=== PATIENT | male | born 1965 | race Two or more races ===

== ENCOUNTER 2020-02-24 08:23 | Day surgery (SDC) | payer OTHER ==
[2020-02-24] VITALS (8 sets, daily range): BP systolic 129–140; BP diastolic 84–103
[~2020-02-24] VITALS: Ht 180.3 cm; Wt 109.3 kg
--- NOTE | 2020-02-24 07:24 | Anethesia Preoperative Eval ---
Anesthesia Pre-op PMH/ROS General Date of Evaluation: Feb 24, 2020 Time of Evaluation: 07:23 Anesthesiologist: hannah ASA Score: ASA 3 Mallampati Score Class I : Soft palate, uvula, fauces, pillars visible Class II: Soft palate, uvula, fauces visible Class III: Soft palate, base of uvula visible Class IV: Only hard plate visible Mallampati Classification: Class II Surgeon: sly Diagnosis: ibs Surgical Procedure: egd Anesthesia History: none Social History: smoking - nonsmoker Family History: no anesthesia problems Allergies: Coded Allergies: PENICILLINS (Verified Allergy, Unknown, 02/24/20) Medications: see eMAR Patient NPO?: Yes Past Medical History Cardiovascular: Reports: HTN HEENT: Reports: cataract (L), cataract (R), other - retinal detachment Other: obesity PSxH Narrative: right ankle surgery Anesthesia Pre-op Phys. Exam Physician Exam Last Vital Signs Date Time Temp Pulse Resp B/P (MAP) Pulse Ox O2 Delivery O2 Flow Rate FiO2 02/24/20 08:53 98.2 79 18 140/84 97 Room Air Constitutional: NAD Neurologic: CN 2-12 intact Cardiovascular: RRR Respiratory: CTA Gastrointestinal: S/NT/ND Airway Exam Mallampati Score: Class II MO: limited Neck: flexible TMD: 2fb ROM: limited Teeth: intact Anesthesia Pre-op A/P Labs Microbiology Date/Time Source Procedure Growth Status 02/23/20 09:07 Nasopharynx SARS-CoV-2 RdRp Gene Assay - Final Complete Risk Assessment & Plan Assessment: asa3 Plan: mac Status Change Before Surgery: No Pre-Antibiotics Drug: Genia Plasencia MD Feb 24, 2020 07:24
[~2020-02-24 08:23] MED LIST: Atropine Inj 1mg/10ml Syr IVP PRN; DiphenhydrAMINE 50mg/ml Inj IVP PRN; LR 1000ml 1,000 ML IVLG SCH; Labetalol 5mg/ml 20ml vial IV PRN; Midazolam 2mg/2ml Inj IVP PRN; fentaNYL 100 mcg/2 mL IV PRN
[2020-02-24] MEDS ORDERED: LISINOPRIL10 MG ORAL (08:52)
--- NOTE | 2020-02-24 09:08 | Short Stay Surgery H&P ---
History of Present Illness History of Present Illness Chief Complaint Abdominal pains/GERDs/dysphagia HPI Chet Solorzano is a 54 year old male who was admitted on for Gerds/dysphagia Patient History Allergies: Coded Allergies: PENICILLINS (Verified Allergy, Unknown, 02/24/20) PAST MEDICAL HISTORY: (1) Hypertension (2) Status post eye surgery (3) History of ankle surgery Medication History Scheduled Lisinopril* (Lisinopril*), Unknown Dose ORAL DAILY, (Reported) Review of Systems Cardiovascular: Reports: hypertension Respiratory: Reports: no symptoms Skeletal: Reports: trauma Gastrointestinal: Reports: gastro esophageal reflux disease Genitourinary: Reports: no symptoms Neurologic: Reports: no symptoms Endocrine: Reports: no symptoms Hematologic: Reports: no symptoms Physical Exam Vital Signs Last Vital Signs Date Time Temp Pulse Resp B/P (MAP) Pulse Ox O2 Delivery O2 Flow Rate FiO2 02/24/20 08:53 98.2 79 18 140/84 97 Room Air Skin: normal HENT: normal Heart: normal Lungs: normal Abdomen: abnormal Extremities: normal Genitourinary: normal Plan Plan of Care Upper GI. endoscopy with biopsy Preop Interventions None. Summary of Findings See the reports. Attestation Are the patient's medical conditions optimized for surgery? Attestation Response: yes Rosanna Domínguez MD Feb 24, 2020 09:08
--- NOTE | 2020-02-24 09:09 | Pre-Procedure Note/Attestation ---
Pre-Procedure Note/Attestation Complete Prior to Procedure Planned Procedure: left Procedure Narrative: Examination of the upper GI. tract via endoscopy. Indications for Procedure Pre-Operative Diagnosis: R/O Peptic ulcer, gastritis,esophagitis. Attestation I attest that I discussed the nature of the procedure; its benefits; risks and complications; and alternatives (and the risks and benefits of such alternatives), prior to the procedure, with the patient (or the patient's legal veterans employment representative). I attest that, if there was a reasonable possibility of needing a blood transfusion, the patient (or the patient's legal veterans employment representative) was given the [facility] standardized written summary, pursuant to the [place] Blood Safety Act ([place] Health and Safety Code # 1645, as amended). I attest that I re-evaluated the patient just prior to the surgery and that th ere has been no change in the patient's H&P, except as documented below: Rosanna Domínguez MD Feb 24, 2020 09:09
--- NOTE | 2020-02-24 09:10 | Discharge Instructions ---
Discharge Instructions Discharge Instructions Follow up with: Non need for follow up with the doctor. For Congestive Heart Failure Reminder Report to your physician any weight gain of 5 pounds or more in one week. Rosanna Domínguez MD Feb 24, 2020 09:10
[2020-02-24] MEDS ORDERED: LR 1000ml ONE (09:30)
[2020-02-24] MEDS ORDERED: Lidocaine 1% MPF 10mg/ml 5ml ONE (09:30)
--- NOTE | 2020-02-24 09:33 | Endoscopy Procedure Note ---
Endoscopy Procedure Note General Indication for Procedure: Dysphagia Procedures Performed: EGD - Mild gastritis, biopsy obtained from gastric body. minimal exudative type plaques over lower esophagus, biopsied, otherwise normal UGI endosocopy. Specimen: yes Pt Tolerated Procedure Well: Yes Estimated Blood Loss: none Anesthesia Anesthesiologist: Dr. young. Anesthesia: moderate sedation Medications Medication Given: see anesthesia record Inserted Devices Implant(s) used?: No Quality Quality of Bowel Preparation: Excellent Was there any complications?: No GI Core Measures 50 yrs or older w/o bx or poly: Not Applicable 10yrs. F/U recommended: Not Applicable If not recommended, why?: Med reason:<3 yrs.: System Reason:<3 yrs.: Rosanna Domínguez MD Feb 24, 2020 09:33
--- NOTE | 2020-02-24 09:56 | Immediate Post-Op Evaluation ---
Immediate Post-Op Evalulation Immediate Post-Op Evalulation Procedure: egd w/bx Date of Evaluation: Feb 24, 2020 Time of Evaluation: 09:54 IV Fluids: 250ml lr Blood Products: none Estimated Blood Loss: negligible Blood Pressure Systolic: 138 Blood Pressure Diastolic: 88 Pulse Rate: 67 Respiratory Rate: 18 O2 Sat by Pulse Oximetry: 99 Temperature (Fahrenheit): 97.7 Pain Score (1-10): 0 Nausea: No Vomiting: No Complications none Patient Status: awake, reacts, patent Hydration Status: adequate Drug: Genia Plasencia MD Feb 24, 2020 09:56
--- NOTE | 2020-02-24 09:58 | 48 Hour Post Anesthesia Eval ---
Post Anesthesia Evaluation Procedure: egd w/bx Date of Evaluation: Feb 24, 2020 Time of Evaluation: 09:57 Blood Pressure Systolic: 137 0: 85 Pulse Rate: 62 Respiratory Rate: 18 Temperature (Fahrenheit): 97.7 O2 Sat by Pulse Oximetry: 99 Airway: patent Nausea: No Vomiting: No Pain Intensity: 0 Hydration Status: adequate Cardiopulmonary Status: stable Mental Status/LOC: patient returned to baseline Post-Anesthesia Complications: none Follow-up care needed: N/A Genia Delgadillo MD Feb 24, 2020 09:58
--- NOTE | 2020-02-24 10:30 | Procedure Note ---
DATE OF PROCEDURE: 02/24/2020 SURGEON: Rosanna Domínguez MD. PROCEDURE: Esophagogastroduodenoscopy with biopsy. PREOPERATIVE DIAGNOSIS: History of toxic chemical exposure and throat irritation, rule out gastroesophageal acid reflux, rule out esophagitis secondary to toxic material. POSTOPERATIVE DIAGNOSES: 1. Minimal superficial exudative substances over the lower esophagus biopsied but no major evidence of esophagitis or strictures noted. 2. Mild generalized gastritis. Biopsy was taken per random from gastric body, otherwise normal upper GI endoscopy. MEDICATION USED: Per Dr. Styles, anesthesiologist. INSTRUMENT: GIF Olympus upper GI video endoscope. DESCRIPTION OF PROCEDURE: The patient after arriving endoscopy unit, was told about risks and benefits of the procedure which he accepted and signed informed consent. He was then put on the left lateral decubitus position. After adequate IV sedation, the scope was gently passed through the cricopharyngeal area. The examination of did not reveal any evidence of inflammatory process, tumors, or polyps etc. The scope was then guided into the esophagus and gradually the upper and mid lower esophagus was examined which looked completely normal. However, upon reaching towards the low third of the esophagus, there was evidence of very minimal superficial exudative plaques that they could not be removed by irrigation of the water. There was no stricture or ulcers etc. However, at this time, one biopsy from one of these areas of were obtained and subsequently scope was advanced towards the gastroesophageal junction which looked completely without any evidence of Alex's mucosa or hiatal hernia. At this time, the scope was advanced into the stomach. Gastric cavity was distended with insufflation of air revealing minimal erythema over the gastric mucosa consistent with mild gastritis but there was no polyps, tumors, ulcers, bleeding site, hemangiomas, etc. A retroflexion maneuver was also applied and the area of the gastroesophageal junction was examined, which did not reveal any major pathology. At this point, one random biopsy from gastric body obtained and subsequently scope was passed through the antrum. First and second portion of duodenum were found to be completely normal. Finally, scope was pulled out and the procedure was terminated. The patient tolerated the procedure well and left the endoscopy room in a good condition. Said Mary Kate Domínguez DR: Benja JOB#: [id number] CC:
--- NOTE | 2020-02-24 10:45 | Pre-op HX & Phy Repo 2 SIG ---
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 This irritated his throat. As I mentioned, it was a toxic material and he started to cough. This happened frequently and still continues to have somewhat symptoms, but it less. He was subsequently seen by the ENT physician, Dr. Juventino Estrada who examined him with large scope and found that there probably not much finding in his throat and larynx and however he mentioned that the patient should undergo an upper GI endoscopic examination, which was approved for further evaluation of his esophagus, possibly gastroesophageal reflux causing his symptoms including cough that he has had. The patient however denies having had any other major gastrointestinal conditions in the past. He denies having any abdominal pain, any epigastric pain. There is no nausea or vomiting at this point. No evidence of GI bleeding such as hematemesis, melena, hematochezia. He reports that he has been trying taking omeprazole and antacids, which obviously have not been immediately helpful for his condition. He also denies having any major swallowing problem such as dysphagia, odynophagia, etc though at this point, he basically mentioned he is having problem over his throat at times and cough, which is intermittent in nature. He denies having been prescribed any nonsteroidal anti-inflammatory agents recently, but he used to take occasionally in the past, which was rare in occasions. He denies rectal bleeding or having any major diarrhea or constipation at this point of time. He has never had any history of GI condition before including gastritis or peptic ulcer disease either. PAST MEDICAL HISTORY: Patient has had history of hypertension, which seems to be under good control with medications. PAST SURGICAL HISTORY: He has had detached retina of the left eye in 1978 and ankle surgery on the right side, which was twisted and operated in 2016. This was [id number]. ALLERGIES: To penicillin and peanuts. FAMILY HISTORY: Nonsignificant. HABITS: He does not smoke or drinks. REVIEW OF SYSTEMS: Basically history of present illness. PHYSICAL EXAMINATION: GENERAL: At this time reveals alert, well oriented, very pleasant gentleman, does not seem to be in any acute distress. He looks well developed and obese. VITAL SIGNS: Temperature 98.2, pulse rate 79 per minute, respiratory rate 18 per minute, blood pressure 140/85, pulse ox 97% on room air. HEENT: Normocephalic. Pupils equal in size and reactive to light and accommodation. No evidence of conjunctival jaundice. Buccal cavity, tongue midline, well hydrated. No ulcers. NECK: Supple. No JVD, thyromegaly, or adenopathy. CHEST: Clear to auscultation and percussion. No rales or rhonchi. HEART: S1, S2 normal. Regular rhythm. No gallops or murmur. ABDOMEN: Soft and totally symptomatic. Bowel sounds are present. No masses or organomegaly noted. EXTREMITIES: Unremarkable. CENTRAL NERVOUS SYSTEM: Unremarkable. INITIAL PREOPERATIVE IMPRESSION: 1. History of throat irritation and possible dysphagia, rule out toxic-induced esophagitis. 2. Possible laryngitis secondary to gastroesophageal acid reflux. 3. Hypertension. RECOMMENDATION: At this point, the applicant seems to be quite stable to undergo the procedure of upper GI endoscopy for which he has been scheduled. He understands the risks and benefits and will sign the consent. Said Mary Kate Domínguez DR: AICHA JOB#: [id number] CC:
== END 2020-02-24 10:40 | disposition home or self-care (01) ==
LOC: GAS 08:23
DX: R13.10 Dysphagia, unspecified (principal); I10 Essential (primary) hypertension; Z88.0 Allergy status to penicillin; Z91.010 Allergy to peanuts; Z68.33 Body mass index [BMI] 33.0-33.9, adult; K29.50 Unspecified chronic gastritis without bleeding; K21.00 Gastro-esophageal reflux disease with esophagitis, without bleeding
CPT/HCPCS: 43239; 94003; J2704; J7120; U0002; 94150